=== PATIENT | female | born 1955 | race Caucasian/White ===

== ENCOUNTER 2020-06-16 12:56 | Outpatient (REF) | payer OTHER, SELFPAY ==
--- NOTE | 2020-06-16 13:00 | MM_ITS ---
EXAMINATION: MM SCREENING DIGITAL BREAST TOMOSYNTHESIS, BILATERAL CLINICAL INFORMATION: Screening. Asymptomatic. The lifetime risk of breast cancer based on the Tyrer-Cuzick Model is 7%. COMPARISON: Mammography: 12/26/2017, 09/04/2018, 08/15/2016 TECHNIQUE: Digital breast tomosynthesis is performed in both the craniocaudal and mediolateral oblique views along with computer-aided detection (CAD). Synthesized 2D images are generated from the tomosynthesis. FINDINGS: There are scattered areas of fibroglandular density (ACR BI-RADS breast composition Category b). There are no significant masses, abnormal calcifications, or other abnormalities. No developing density. The axilla are unremarkable. MM/MM tomosynthesis screening BI IMPRESSION: No mammographic evidence of malignancy. ASSESSMENT: BI-RADS 1: Negative RECOMMENDATION: Routine annual mammography screening. This patient's information was entered into a reminder system with a target due date for their next mammogram.
== END 2020-06-16 12:57 | disposition home or self-care (01) ==
LOC: HO.MAMMO 12:56
PROVIDERS: PCP Internal Medicine; Visit Provider Physician Assistant
DX: Z12.31 Encounter for screening mammogram for malignant neoplasm of breast (principal); Z91.89 Other specified personal risk factors, not elsewhere classified
CPT/HCPCS: 77063; 77067

== ENCOUNTER 2021-05-22 06:32 | Outpatient (REF) | payer OTHER, SELFPAY ==
[2021-05-22 06:38] LABS: MANUAL DIFF FLAG NO
[2021-05-22 07:29] LABS: Basophils Absolute Auto 0.1 X10*3/uL (0.0-0.2); Basophils Percent Auto 0.9 % (0-2); Eosinophils Absolute Auto 0.2 X10*3/uL (0.0-0.4); Hematocrit 40.6 % (37.0-47.0); Hemoglobin 13.1 g/dl (12.0-16.0); Imm Gran Abs Auto 0.02 X10*3/uL (0.00-0.03); Imm Gran Pct Auto 0.3 % (0.0-0.4); Lymphocytes Absolute Auto 2.1 X10*3/uL (1.2-4.9); Lymphocytes Percent Auto 27.3 % (20-40); Mean Corpuscular HGB Conc 32.3 g/dl (31.0-35.0); Mean Corpuscular Hemoglobin 29.8 pg (27.0-33.0); Mean Corpuscular Volume 92.5 fL (80.0-98.0); Mean Platelet Volume 10.1 fL (9.4-12.3); Monocytes Absolute Auto 0.6 X10*3/uL (0.1-1.2); Monocytes Percent Auto 7.2 % (2-11); Neutrophils Absolute Auto 4.68 x10*3/uL (2.0-8.3); Neutrophils Percent Auto 61.3 % (45-73); Platelet Count 266 X10*3/uL (160-400); Red Blood Count 4.39 X10*6/uL (4.20-5.50); Red Cell Distribution Width 12.9 % (11.0-16.0); White Blood Count 7.6 X10*3/uL (4.8-10.8)
[2021-05-22 08:02] LABS: Alanine Aminotransferase 33 U/L (0-31); Albumin Level 4.3 g/dL (3.5-5.0); Alkaline Phosphatase 63 U/L (39-117); Anion Gap 11 (12-20); Aspartate Amino Transferase 22 U/L (5-31); Bilirubin Total 0.5 mg/dL (0.0-1.0); Blood Urea Nitrogen 17 mg/dL (9-16); Calcium 9.3 mg/dL (8.4-10.2); Carbon Dioxide 30 mmol/L (22-29); Chloride 105 mmol/L (96-108); Cholesterol 189 mg/dL; Estimated Glomerular Filt Rate > 60; Glucose Random 105 mg/dL (60-115); HDL Cholesterol 59 mg/dL; LDL Cholesterol Calculated 115 mg/dl; Potassium 4.7 mmol/L (3.3-5.1); Sodium 141 mmol/L (135-145); Total Protein 6.9 g/dL (6.5-8.0); Triglycerides 78 mg/dL
[2021-05-22 08:13] LABS: TSH reflex Free T4 4.28 uIU/mL (0.32-4.0)
[2021-05-22 08:59] LABS: Free T4 (Free Thyroxine) 0.91 ng/dL (0.71-1.85)
== END 2021-05-22 06:33 | disposition home or self-care (01) ==
LOC: HO.LAB 06:32
PROVIDERS: PCP Physician Assistant; Visit Provider Physician Assistant
DX: Z00.00 Encounter for general adult medical examination without abnormal findings (principal)
CPT/HCPCS: 36415; 80053; 80061; 84439; 84443; 85025

== ENCOUNTER 2021-06-07 14:46 | Outpatient (REF) | payer OTHER, SELFPAY ==
--- NOTE | ~2021-06-07 | US_ITS ---
EXAMINATION: US THYROID CLINICAL INFORMATION: Nontoxic multinodular goiter. COMPARISON: Ultrasound soft tissue head/neck thyroid dated 04/03/2020 and 09/22/2019. TECHNIQUE: Linear transducer grayscale and color Doppler examination with attention to the region of the thyroid. FINDINGS: SIZE: Measurements of the thyroid lobes and nodules are given in sagittal, anteroposterior and transverse dimensions respectively. Right Thyroid Lobe: 5.79 x 1.9 x 2.13 cm, volume 12.3 mL. Previously 5.8 x 2.1 x 2.3 cm, volume 14.7 mL. Parenchyma: The gland echotexture is heterogeneous. Thyroid vascularity is slightly increased. Left Thyroid Lobe: 5.56 x 1.94 x 2.16 cm, volume 12.2 mL. Previously 5.3 x 1.9 x 2.3 cm, volume 12.1 mL. Parenchyma: The gland echotexture is heterogeneous. Thyroid vascularity is slightly increased. Isthmus: 0.43 cm in maximum AP dimension. Previously 0.50 cm. Estimated total number of nodules greater than or equal to 1 cm: 3. 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 Location: Right inferior. Size: 1.5 x 0.9 x 1.4 cm, volume 0.94 mL. Previously: 0.92 x 0.84 x 0.89 cm, volume 0.36 mL. Nodule characteristics: Composition: Mixed cystic and solid (1). Echogenicity: Isoechoic (1). Shape: Not taller than wide (0). Margins: Smooth (0). Echogenic Foci: None (0). ACR TI-RADS total points: 2 ACR TI-RADS category: 2 Significant change in size (>/= 20% in 2 dimensions and minimal increase of 2 mm or 50% or greater increase in volume): Change in features: Change in ACR TI-RADS risk category: 2. Location: Right mid. Size: 1.0 x 0.95 x 1.2 cm, volume 0.6 mL. Previously: 1.1 x 1.1 x 1.2 cm, volume 0.76 mL. Nodule characteristics: Composition: Cannot be determined (2). Echogenicity: Cannot be determined (1). Shape: Not taller than wide (0). Margins: Smooth (0). Echogenic Foci: Peripheral calcifications (2). ACR TI-RADS total points: 5 ACR TI-RADS category: 4 Significant change in size (>/= 20% in 2 dimensions and minimal increase of 2 mm or 50% or greater increase in volume): Change in features: Change in ACR TI-RADS risk category: 3. Location: Left inferior. Size: 1.5 x 0.9 x 0.65 cm, volume 0.46 mL. Previously: 1.6 x 0.9 x 0.83 cm, volume 0.63 mL. Nodule characteristics: Composition: Solid (2). Echogenicity: Hyperechoic (1). Shape: Not taller than wide (0). Margins: Smooth (0). Echogenic Foci: None (0). ACR TI-RADS total points: 3 ACR TI-RADS category: 3 Significant change in size (>/= 20% in 2 dimensions and minimal increase of 2 mm or 50% or greater increase in volume): Change in features: Change in ACR TI-RADS risk category: 4. Location: Left superior. Size: 0.8 x 0.61 x 0.72 cm, volume 0.18 mL. Previously: 0.84 x 0.51 x 0.74 cm, volume 0.17 mL. Nodule characteristics: Composition: Solid (2). Echogenicity: Hyperechoic (1). Shape: Not taller than wide (0). Margins: Smooth (0). Echogenic Foci: None (0). ACR TI-RADS total points: 3 ACR TI-RADS category: 3 Significant change in size (>/= 20% in 2 dimensions and minimal increase of 2 mm or 50% or greater increase in volume): Change in features: Change in ACR TI-RADS risk category: NODES: No lymphadenopathy is seen in the tissue surrounding the thyroid gland. US/US thyroid IMPRESSION: Enlarged heterogeneous slightly hypervascular thyroid gland. There is interval increase in size in the mixed solid and cystic nodule in the inferior right lobe. Otherwise nodules do not appear appreciably changed.. ACR TI-RADS RECOMMENDATION REFERENCE: Ultrasound-guided fine-needle aspiration, followup ultrasound, no further follow up. * TR1 (0 point) and TR 2 (2 points): No FNA or follow up * TR3 (3 points): FNA if more than or equal to 2.5 cm in maximum dimension, followup ultrasound in 1, 3 and 5 years if 1.5 to 2.4 cm in maximum dimension. * TR4 (4-6 points): FNA if more than or equal to 1.5 cm in maximum dimension, followup ultrasound in 1, 2, 3 and 5 years if 1 to 1.4 cm in maximum dimension. * TR5 (more than or equal to 7 points): FNA if more than or equal to 1 cm in maximum dimension, followup ultrasound every year for 5 years if 0.5 to 0.9 cm in maximum dimension. * TR3, TR4 or TR5 nodules that are below the size threshold for follow up receive no follow up.
== END 2021-06-07 14:47 | disposition home or self-care (01) ==
LOC: HO.US 14:46
PROVIDERS: PCP Physician Assistant; Visit Provider Internal Medicine
DX: E04.2 Nontoxic multinodular goiter (principal)
CPT/HCPCS: 76536

== ENCOUNTER 2021-06-18 07:49 | Outpatient (REF) | payer OTHER, SELFPAY ==
--- NOTE | ~2021-06-18 | MM_ITS ---
EXAMINATION: MM SCREENING DIGITAL BREAST TOMOSYNTHESIS, BILATERAL CLINICAL INFORMATION: Screening. Asymptomatic. The lifetime risk of breast cancer based on the Tyrer-Cuzick Model is 6%. COMPARISON: Mammography: 06/16/2020, 12/26/2017, 12/16/2017, 08/15/2016, 07/17/2015 TECHNIQUE: Digital breast tomosynthesis is performed in both the craniocaudal and mediolateral oblique views along with computer-aided detection (CAD). Synthesized 2D images are generated from the tomosynthesis. FINDINGS: There are scattered areas of fibroglandular density (ACR BI-RADS breast composition Category b). There are no significant masses, abnormal calcifications, or other abnormalities. There are shifting fibroglandular densities from year to year related to positioning. No developing density or interval mass or architectural abnormality. There are some scattered benign round and ductal secretory calcifications. No significant changes. MM/MM tomosynthesis screening BI IMPRESSION: No mammographic evidence of malignancy. ASSESSMENT: BI-RADS 2: Benign RECOMMENDATION: Routine annual mammography screening. This patient's information was entered into a reminder system with a target due date for their next mammogram.
== END 2021-06-18 07:50 | disposition home or self-care (01) ==
LOC: HO.MAMMO 07:49
PROVIDERS: Visit Provider Physician Assistant
DX: Z12.31 Encounter for screening mammogram for malignant neoplasm of breast (principal)
CPT/HCPCS: 77063; 77067

== ENCOUNTER 2021-09-07 07:41 | Outpatient (REF) | payer OTHER, SELFPAY ==
[2021-09-07 08:57] LABS: Free T4 (Free Thyroxine) 1.14 ng/dL (0.71-1.85); Thyroid Stimulating Hormone 1.85 uIU/mL (0.32-4.0)
== END 2021-09-07 07:42 | disposition home or self-care (01) ==
LOC: HO.LAB 07:41
PROVIDERS: PCP Physician Assistant; Visit Provider Internal Medicine
DX: E04.2 Nontoxic multinodular goiter (principal)
CPT/HCPCS: 36415; 84439; 84443

== ENCOUNTER 2022-03-08 08:42 | Outpatient (REF) | payer OTHER, SELFPAY ==
--- NOTE | ~2022-03-08 | US_ITS ---
EXAMINATION: US THYROID CLINICAL INFORMATION: Nontoxic multinodular goiter. COMPARISON: Ultrasound soft tissue head/neck thyroid dated 06/07/2021 and 04/03/2020. TECHNIQUE: Linear transducer grayscale and color Doppler examination with attention to the region of the thyroid. FINDINGS: SIZE: Measurements of the thyroid lobes and nodules are given in sagittal, anteroposterior and transverse dimensions respectively. Right Thyroid Lobe: 5.3 x 1.8 x 2.9 cm, volume 14.5 mL. Previously 5.8 x 1.9 x 2.1 cm, volume 12.3 mL. Parenchyma: The gland echotexture is homogeneous. Thyroid vascularity is increased. Left Thyroid Lobe: 4.8 x 1.8 x 2.4 cm, volume 10.8 mL. Previously 5.6 x 1.9 x 2.2 cm, volume 12.2 mL. Parenchyma: The gland echotexture is heterogeneous. Thyroid vascularity is increased. Isthmus: 0.3 cm in maximum AP dimension. Previously 0.5 cm. Estimated total number of nodules greater than or equal to 1 cm: 2. 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 Location: Right inferior. Size: 0.9 x 0.7 x 1.1 cm, volume 0.4 mL. Previously: 1.5 x 0.9 x 1.4 cm, volume 0.9 mL. Nodule characteristics: Composition: Mixed cystic and solid (1). Echogenicity: Isoechoic (1). Shape: Not taller than wide (0). Margins: Smooth (0). Echogenic Foci: None (0). ACR TI-RADS total points: 2 Previous: 2 ACR TI-RADS category: 2 Previous: 2 Measurement difference may be due to interobserver variation of nodule borders. 2. Location: Right mid. Size: 1.0 x 1.0 x 1.0 cm, volume 0.5 mL. Previously: 1.0 x 1.0 x 1.2 cm, volume 0.6 mL. Nodule characteristics: Composition: Solid (2). Echogenicity: Hyperechoic (1). Shape: Not taller than wide (0). Margins: Smooth (0). Echogenic Foci: Peripheral calcifications (2). ACR TI-RADS total points: 5 Previous: 5 ACR TI-RADS category: 4 Previous: 4 Significant change in size (>/= 20% in 2 dimensions and minimal increase of 2 mm or 50% or greater increase in volume): Change in features: Change in ACR TI-RADS risk category: 3. Location: Left inferior. Size: 0.7 x 0.6 x 0.6 cm, volume 0.1 mL. Previously: 1 x 0.6 x 0.6 cm Nodule characteristics: Composition: Solid (2). Echogenicity: Hyperechoic (1). Shape: Not taller than wide (0). Margins: Smooth (0). Echogenic Foci: None (0). ACR TI-RADS total points: 3 ACR TI-RADS category: 3 4. Location: Left mid/inferior. Size: 0.7 x 0.5 x 0.8 cm, volume 0.1 mL. Previously: 0.8 x 0.6 x 0.7 Nodule characteristics: Composition: Solid (2). Echogenicity: Hyperechoic (1). Shape: Not taller than wide (0). Margins: Smooth (0). Echogenic Foci: None (0). ACR TI-RADS total points: 3 ACR TI-RADS category: 3 NODES: No lymphadenopathy is seen in the tissue surrounding the thyroid gland. US/US thyroid IMPRESSION: Enlarged hypervascular thyroid gland. No appreciable change in bilateral thyroid nodules. ACR TI-RADS RECOMMENDATION REFERENCE: Ultrasound-guided fine-needle aspiration, followup ultrasound, no further follow up. * TR1 (0 point) and TR 2 (2 points): No FNA or follow up * TR3 (3 points): FNA if more than or equal to 2.5 cm in maximum dimension, followup ultrasound in 1, 3 and 5 years if 1.5 to 2.4 cm in maximum dimension. * TR4 (4-6 points): FNA if more than or equal to 1.5 cm in maximum dimension, followup ultrasound in 1, 2, 3 and 5 years if 1 to 1.4 cm in maximum dimension. * TR5 (more than or equal to 7 points): FNA if more than or equal to 1 cm in maximum dimension, followup ultrasound every year for 5 years if 0.5 to 0.9 cm in maximum dimension. * TR3, TR4 or TR5 nodules that are below the size threshold for follow up receive no follow up.
== END 2022-03-08 08:43 | disposition home or self-care (01) ==
LOC: HO.US 08:42
PROVIDERS: Visit Provider Internal Medicine Endocrinology, Diabetes & Metabolism
DX: E04.2 Nontoxic multinodular goiter (principal)
CPT/HCPCS: 76536

== ENCOUNTER 2022-03-13 08:07 | Outpatient (REF) | payer OTHER, SELFPAY | END 2022-03-13 08:08 | disposition home or self-care (01) | LOC: HO.LAB 08:07 | PROVIDERS: PCP Physician Assistant; Visit Provider Internal Medicine Endocrinology, Diabetes & Metabolism | DX: E04.2 Nontoxic multinodular goiter (principal) | CPT/HCPCS: 36415; 84439; 84443 ==

== ENCOUNTER 2022-05-13 09:42 | Outpatient (REF) | payer OTHER, SELFPAY ==
[2022-05-13 11:29] LABS: MANUAL DIFF FLAG NO
[2022-05-13 11:33] LABS: Basophils Absolute Auto 0.1 X10*3/uL (0.0-0.2); Eosinophils Absolute Auto 0.1 X10*3/uL (0.0-0.4); Eosinophils Percent Auto 1.7 % (0-4); Hematocrit 42.4 % (37.0-47.0); Hemoglobin 13.3 g/dl (12.0-16.0); Imm Gran Abs Auto 0.06 X10*3/uL (0.00-0.03); Imm Gran Pct Auto 0.8 % (0.0-0.4); Lymphocytes Percent Auto 25.2 % (20-40); Mean Corpuscular HGB Conc 31.4 g/dl (31.0-35.0); Mean Corpuscular Hemoglobin 29.1 pg (27.0-33.0); Mean Corpuscular Volume 92.8 fL (80.0-98.0); Mean Platelet Volume 10.5 fL (9.4-12.3); Monocytes Absolute Auto 0.7 X10*3/uL (0.1-1.2); Monocytes Percent Auto 8.3 % (2-11); Platelet Count 297 X10*3/uL (160-400); Red Blood Count 4.57 X10*6/uL (4.20-5.50); Red Cell Distribution Width 13.5 % (11.0-16.0); White Blood Count 7.9 X10*3/uL (4.8-10.8)
[2022-05-13 12:18] LABS: Alanine Aminotransferase 24 U/L (0-31); Albumin Level 4.4 g/dL (3.5-5.0); Alkaline Phosphatase 63 U/L (39-117); Anion Gap 16 (12-20); Aspartate Amino Transferase 23 U/L (5-31); Bilirubin Total 0.4 mg/dL (0.0-1.0); Blood Urea Nitrogen 14 mg/dL (9-16); Calcium 9.6 mg/dL (8.4-10.2); Carbon Dioxide 29 mmol/L (22-29); Chloride 101 mmol/L (96-108); Cholesterol 207 mg/dL; Estimated Glomerular Filt Rate > 60; Glucose Random 103 mg/dL (60-115); HDL Cholesterol 70 mg/dL; LDL Cholesterol Calculated 124 mg/dl; Potassium 4.7 mmol/L (3.3-5.1); Sodium 141 mmol/L (135-145); Triglycerides 67 mg/dL
== END 2022-05-13 09:43 | disposition home or self-care (01) ==
LOC: HO.MANLDS 09:42
PROVIDERS: Visit Provider Physician Assistant
DX: Z00.00 Encounter for general adult medical examination without abnormal findings (principal)
CPT/HCPCS: 36415; 80053; 80061; 85025

== ENCOUNTER 2022-07-01 07:46 | Outpatient (REF) | payer OTHER, SELFPAY ==
--- NOTE | ~2022-07-01 | MM_ITS ---
EXAMINATION: MM SCREENING DIGITAL BREAST TOMOSYNTHESIS, BILATERAL CLINICAL INFORMATION: Screening. Asymptomatic. The lifetime risk of breast cancer based on the Tyrer-Cuzick Model is 6%. COMPARISON: Mammography: 06/18/2021, 06/16/2020, 12/26/2017, 12/16/2017 TECHNIQUE: Digital breast tomosynthesis is performed in both the craniocaudal and mediolateral oblique views along with computer-aided detection (CAD). Synthesized 2D images are generated from the tomosynthesis. FINDINGS: There are scattered areas of fibroglandular density (ACR BI-RADS breast composition Category b). There are no significant masses, abnormal calcifications, or other abnormalities. Parenchymal pattern is similar to prior studies. There is no developing density or architectural abnormality. The axilla and skin contours are unremarkable. No significant changes. MM/MM tomosynthesis screening BI IMPRESSION: No mammographic evidence of malignancy. ASSESSMENT: BI-RADS 1: Negative RECOMMENDATION: Routine annual mammography screening. This patient's information was entered into a reminder system with a target due date for their next mammogram.
== END 2022-07-01 07:47 | disposition home or self-care (01) ==
LOC: HO.MAMMO 07:46
PROVIDERS: PCP Internal Medicine; Visit Provider Physician Assistant
DX: Z12.31 Encounter for screening mammogram for malignant neoplasm of breast (principal)
CPT/HCPCS: 77063; 77067

== ENCOUNTER 2023-05-27 08:07 | Outpatient (REF) | payer MEDICARE, SELFPAY ==
[2023-05-27 08:16] LABS: MANUAL DIFF FLAG NO
[2023-05-27 08:26] LABS: Basophils Absolute Auto 0.1 X10*3/uL (0.0-0.2); Eosinophils Absolute Auto 0.2 X10*3/uL (0.0-0.4); Eosinophils Percent Auto 2.8 % (0-4); Hematocrit 42.9 % (37.0-47.0); Hemoglobin 13.5 g/dl (12.0-16.0); Imm Gran Abs Auto 0.04 X10*3/uL (0.00-0.03); Imm Gran Pct Auto 0.6 % (0.0-0.4); Lymphocytes Absolute Auto 2.2 X10*3/uL (1.2-4.9); Lymphocytes Percent Auto 30.3 % (20-40); Mean Corpuscular HGB Conc 31.5 g/dl (31.0-35.0); Mean Corpuscular Hemoglobin 29.2 pg (27.0-33.0); Mean Corpuscular Volume 92.7 fL (80.0-98.0); Mean Platelet Volume 9.6 fL (9.4-12.3); Monocytes Absolute Auto 0.5 X10*3/uL (0.1-1.2); Monocytes Percent Auto 6.9 % (2-11); Neutrophils Absolute Auto 4.2 x10*3/uL (2.0-8.3); Neutrophils Percent Auto 58.4 % (45-73); Platelet Count 317 X10*3/uL (160-400); Red Blood Count 4.63 X10*6/uL (4.20-5.50); Red Cell Distribution Width 12.9 % (11.0-16.0); White Blood Count 7.3 X10*3/uL (4.8-10.8)
[2023-05-27 08:58] LABS: Alanine Aminotransferase 23 U/L (0-31); Albumin Level 4.2 g/dL (3.5-5.0); Alkaline Phosphatase 65 U/L (39-117); Anion Gap 11 (12-20); Aspartate Amino Transferase 23 U/L (5-31); Bilirubin Total 0.4 mg/dL (0.0-1.0); Blood Urea Nitrogen 14 mg/dL (9-16); Calcium 9.7 mg/dL (8.4-10.2); Carbon Dioxide 31 mmol/L (22-29); Chloride 105 mmol/L (96-108); Cholesterol 181 mg/dL (<200); Estimated Glomerular Filt Rate > 60; Glucose Random 101 mg/dL (60-115); HDL Cholesterol 61 mg/dL (>40); LDL Cholesterol Calculated 105 mg/dL (<100); Potassium 4.6 mmol/L (3.3-5.1); Sodium 142 mmol/L (135-145); Total Protein 7.5 g/dL (6.5-8.0); Triglycerides 77 mg/dL (<150)
== END 2023-05-27 08:08 | disposition home or self-care (01) ==
LOC: HO.LAB 08:07
PROVIDERS: PCP Internal Medicine; Visit Provider Physician Assistant
DX: Z00.00 Encounter for general adult medical examination without abnormal findings (principal); Z20.2 Contact with and (suspected) exposure to infections with a predominantly sexual mode of transmission
CPT/HCPCS: 36415; 80053; 80061; 85025

== ENCOUNTER 2023-07-31 10:11 | Outpatient (REF) | payer MEDICARE, SELFPAY | END 2023-07-31 10:12 | disposition home or self-care (01) | LOC: HO.MAMMO 10:11 | PROVIDERS: PCP Physician Assistant; Visit Provider Internal Medicine | DX: Z12.31 Encounter for screening mammogram for malignant neoplasm of breast (principal) | CPT/HCPCS: 77063; 77067 ==

== ENCOUNTER → 2023-07-31 10:30 | Outpatient (BNV) | payer MEDICARE, SELFPAY | PROVIDERS: PCP Physician Assistant; Visit Provider Radiology Diagnostic Radiology | DX: Z12.31 Encounter for screening mammogram for malignant neoplasm of breast (principal) | CPT/HCPCS: 77063; 77067 ==

== ENCOUNTER 2024-05-26 07:30 | Outpatient (REF) | payer MEDICARE, SELFPAY ==
[2024-05-26 07:51] LABS: MANUAL DIFF FLAG NO
[2024-05-26 08:05] LABS: Basophils Absolute Auto 0.1 X10*3/uL (0.0-0.2); Eosinophils Absolute Auto 0.2 X10*3/uL (0.0-0.4); Eosinophils Percent Auto 2.8 % (0-4); Hemoglobin 12.9 g/dl (12.0-16.0); Imm Gran Abs Auto 0.01 X10*3/uL (0.00-0.03); Imm Gran Pct Auto 0.1 % (0.0-0.4); Lymphocytes Absolute Auto 2.1 X10*3/uL (1.2-4.9); Lymphocytes Percent Auto 30.1 % (20-40); Mean Corpuscular HGB Conc 32.3 g/dl (31.0-35.0); Mean Corpuscular Hemoglobin 29.7 pg (27.0-33.0); Mean Corpuscular Volume 92.2 fL (80.0-98.0); Mean Platelet Volume 9.9 fL (9.4-12.3); Monocytes Absolute Auto 0.5 X10*3/uL (0.1-1.2); Monocytes Percent Auto 7.6 % (2-11); Neutrophils Percent Auto 58.4 % (45-73); Platelet Count 238 X10*3/uL (160-400); Red Blood Count 4.34 X10*6/uL (4.20-5.50); Red Cell Distribution Width 12.6 % (11.0-16.0); White Blood Count 6.8 X10*3/uL (4.8-10.8)
[2024-05-26 08:11] LABS: Estimated Average Glucose 123 mg/dL; Hemoglobin A1c % 5.9 % (<6.0); Total Hemoglobin (HGBA1C) 3427.3479 umol/L
[2024-05-26 08:34] LABS: Alanine Aminotransferase 28 U/L (0-31); Albumin Level 4.1 g/dL (3.5-5.0); Alkaline Phosphatase 63 U/L (39-117); Anion Gap 11 (12-20); Aspartate Amino Transferase 26 U/L (5-31); Bilirubin Total 0.4 mg/dL (0.0-1.0); Blood Urea Nitrogen 13 mg/dL (9-16); Calcium 9.6 mg/dL (8.4-10.2); Carbon Dioxide 29 mmol/L (22-29); Chloride 106 mmol/L (96-108); Cholesterol 169 mg/dL (<200); Estimated Glomerular Filt Rate > 60; Glucose Random 99 mg/dL (60-115); HDL Cholesterol 59 mg/dL (>40); LDL Cholesterol Calculated 92 mg/dL (<100); Potassium 4.4 mmol/L (3.3-5.1); Sodium 142 mmol/L (135-145); Total Protein 6.8 g/dL (6.5-8.0); Triglycerides 90 mg/dL (<150)
[2024-05-26 08:44] LABS: Free T4 (Free Thyroxine) 1.09 ng/dL (0.71-1.85); Vitamin D 25-OH Total 36.2 ng/mL (>30)
== END 2024-05-26 07:31 | disposition home or self-care (01) ==
LOC: HO.LAB 07:30
PROVIDERS: PCP Physician Assistant; Visit Provider Physician Assistant
DX: Z00.00 Encounter for general adult medical examination without abnormal findings (principal); E00.0 Congenital iodine-deficiency syndrome, neurological type; Z13.1 Encounter for screening for diabetes mellitus
CPT/HCPCS: 36415; 80053; 80061; 82306; 83036; 84439; 84443; 85025

== ENCOUNTER 2024-08-03 10:00 | Outpatient (REF) | payer MEDICARE, SELFPAY | END 2024-08-03 10:01 | disposition home or self-care (01) | LOC: HO.MAMMO 10:00 | PROVIDERS: PCP Physician Assistant; Visit Provider Physician Assistant | DX: Z12.31 Encounter for screening mammogram for malignant neoplasm of breast (principal) | CPT/HCPCS: 77063; 77067 ==

== ENCOUNTER → 2024-08-03 10:15 | Outpatient (BNV) | payer MEDICARE, SELFPAY | PROVIDERS: PCP Physician Assistant; Visit Provider Internal Medicine | DX: Z12.31 Encounter for screening mammogram for malignant neoplasm of breast (principal) | CPT/HCPCS: 77063; 77067 ==

== ENCOUNTER 2025-04-14 08:33 | Outpatient (AMB) | payer MEDICARE, SELFPAY ==
--- NOTE | 2025-04-14 08:41 | AM.OFFWIN_ITS ---
Intake Vital Signs 04/14/25 08:47 Height 5 ft 9 in Weight 212 lb BMI 31.3 BP 124/66 Blood Pressure Location Rt brachial Position Sitting Pulse 68 Pulse Source Pulse Oximeter Temp 98.5 F Temp Source Oral Pulse Oximetry (%) 98 Oxygen Delivery Method Room Air Intake Visit Reasons: EP LT knee pain Intake Note: pt presents LT knee pain since yesterday Patient Tobacco Use Status: Never used Tobacco Allergies No Known Allergies Allergy (Verified 04/14/25 08:47) Medication List - Last Reconciled 04/14/25 by Di Grant NP calcium carbonate-vitamin D3 600 mg-5 mcg (200 unit) 1 tab PO DAILY levothyroxine 88 mcg PO DAILY 30 days multivitamin 1 tab PO DAILY omeprazole 20 mg PO DAILY simvastatin 40 mg PO BEDTIME Do you need a note to return to daycare/school/sports/work: No HPI HPI Comments History of Present Illness Details 69 y/o Female patient who presents to [facility] walk in clinic with c/o left Knee Pain since Yesterday. Reports that she was walking her Dog Yesterday when the Dog pulled on the Leash - she felt sharp pain on Knee. Denies any previous Injury or trauma or Surgery to the knee. She has been Icing with minimal relief. She is currently wearing a knee Brace which has been helping keep the Knee strait. Reports pain worse with Bending Knee and going up stairs. [facility] Medical History (Updated 04/14/25 @ 08:56 by Di Grant NP) Left anterior knee pain Multinodular thyroid Surgical History History of surgery Family History Mother No problems noted. Father No problems noted. Social History (Updated 03/19/22 @ 10:05 by ERIKA Anaya) Alcohol intake: current Alcohol intake frequency: holidays/special occasions only Patient Tobacco Use Status: Never used Tobacco Review of Systems Const All systems reviewed & are unremarkable except as noted in HPI and below Physical Exam Vital Signs: Last Vital Signs Temp 98.5 F 04/14/25 08:47 Pulse 68 04/14/25 08:47 BP 124/66 04/14/25 08:47 Pulse Ox 98 09/25/25 08:47 Oxygen Delivery Method Room Air 04/14/25 08:47 BMI result Body Mass Index 31.3 Const General: no acute distress Nutritional Appearance: obese Orientation/consciousness: patient oriented x3 Neuro General: patient oriented x3, gait normal (Walks with a Slight Limp due to pain.) and moves all extremities Extrem Left lower extremity: knee Details: normal to inspection, tenderness and ab normal ROM Details: pain with active ROM and pain with passive ROM; no swelling, no ecchymosis, no crepitus, no deformity and no unusual warmth Psych Speech and movement: Normal speech and movement present Assessment & Plan Assessment & Plan (1) Left anterior knee pain: Code(s): M25.562 - Pain in left knee Plan: Ordered NSAIDs and Acetaminophen for pain relief. Continue wearing Knee Brace for Support Rest joint and apply Ice/Heat Advised to f/u with Her PCP Medications: New acetaminophen 1,000 mg (2 x 500 mg) PO Q6H PRN 20 caps 0RF pain M25.562 - Pain in left knee ibuprofen 800 mg PO Q8H 20 tabs 0RF M25.562 - Pain in left knee diclofenac sodium 1% (Voltaren Arthritis Pain) Apply to the affected Knee. 2 grams topical QID 100 grams 0RF M25.562 - Pain in left knee Coding Level of Care Code New Pt Level 4 (48018) Diagnoses Left anterior knee pain M25.562 Time Spent (min) 20
[2025-04-14 08:47] VITALS: BP 124/66; PULSE 68; TEMP 36.9; O2SAT 98; BMI 31.3
--- OUTSIDE RECORDS SUMMARY | 2025-04-14 09:06 | XMS_ITS | Patient Health Record ---
Author Organization [facility] Address [address] [place] [id number] Care Team Providers Care Business Information Consultant Name Role Phone Rashaun Kennedy Primary Care Provider Wilian Sexton [phone] Reason For Referral No Information Medications Medication SIG (Take, Route, Fr equency, Duration) Notes Start Date End Date Status Simvastatin 40 MG 1 tablet in the even ing Orally Once a day Active Multivitamin Adult A ctive Calcium Active Baby Aspirin Active Social History Tobacco Use: Social History Observation Description Date Details (start date - stop date) Never Smoker NA - NA Tobacco Use/Smoking Question Answer Notes Patient is a nonsmoker Alcohol Screen Question Answer Notes Did you have a drink contain ing alcohol in the past year? Yes How often did you have a dri nk containing alcohol in the past year? 2 to 4 times a month (2 points) How many drinks did you have on a typical day when you were drinking in the past year? 3 or 4 drinks (1 point) How often did you have 6 or more drinks on one occasion in the past year? Never (0 point) Points 3 Interpretation Positive Section Notes: Nonsmoker; no sig alcohol Problems Problem Type SNOMED Code ICD Code Onset Dates Problem Status W/U Status Risk Notes Problem [id number] Encounter for screening for malignant neoplasm of colon (Z12.11) Active confirmed Problem [id number] Preprocedural examination (Z01.818) Active confirmed Plan Of Treatment Future Test Test Name Order Date COLONOSCOPY 12/25/2017 Insurance Providers Payer Name Payer Address Payer Phone Subscriber Number Group Number Insured Name Patient Relationship to Insured Coverage Start Date Coverage End Date [employer] [address] [place] [id number] KATI WHEELER Self - patient is the insured Medical (General) History Medical History History ICD Code Denies [place],DM,CVA,Lung disease,renal dise ase Thyroid nodules--sees Dr. Resendiz Neg. screening colonoscopy i n 03/2008 except for some mild sigmoid diverticulosis and small internal hemorrhoids Hyperlipidemia Surgical History Surgery Date(Month/Year) Cholecystectomy
== END 2025-04-14 09:07 | disposition home or self-care (01) ==
PROVIDERS: PCP Physician Assistant; Visit Provider Nurse Practitioner Family
DX: M25.562 Pain in left knee (principal)

== ENCOUNTER → 2025-04-14 08:33 | Outpatient (BNVA) | payer MEDICARE, SELFPAY | PROVIDERS: PCP Physician Assistant; Visit Provider Nurse Practitioner Family | DX: M25.562 Pain in left knee (principal) | CPT/HCPCS: 99202 ==

== ENCOUNTER 2025-06-10 07:37 | Outpatient (REF) | payer MEDICARE, SELFPAY ==
--- OUTSIDE RECORDS SUMMARY | 2025-06-10 07:40 | XMS_ITS | Data Portability ---
Author Organization [facility] Mitch Love Mnmary [facility] Surgeons [facility], [facility] Address [address] [place] [address] Care Team Providers Care Child Care Worker Name Role Phone DEBORAH LOPES Primary Care Provider [phone] Assessment Encounter Date Assessment Date Assessment LastModified by Organization Details LastModified Time 12/04/2023 12/04/2023 Making steady gains increasing ROM, and improved active mechanics supine and STD with FF. Good naty to light strengthening . Appears ready for D/C to HEP D/C to I HEP [email or web address] Not available 12/04/2023 09:56:06 Plan of Treatment Reminders Order Date Submit Date Provider Last Modified By Organization Details Last Modified Time Details Appointments NEW PROBLEM 2025 10:45A M Nader Ruiz PA-C Not available Not available Not available Lab None recorded . Referral None recorded . Procedures None recorded . Surgeries None recorded . Imaging XR, shoulder , 2 or more view - ROOM 203, 6month f/u, Left Rev TSA 08/26/23 JVG 2023 024 [email or web address] 7 [facility], [address], [place], [address], 04/08/2024 16:04:49 XR, shoulder , 2 or more view - right shoulder 4 view rm 212 2023 024 [facility], [address], [address], [place], [address], 01/13/2024 14:13:09 XR, shoulder , 2 or more view - Left shoulder rTSA sx 3 view, RM 214 2023 024 [facility], [address], [address], 12/11/2023 12:49:24 Medication Orders amoxicil joanne 500 mg capsule 2023 024 [id number], [address] [place], [address], 12/01/2023 11:05:17 Patient TargetsNo targets recorded. Patient Instructions Encounter Date Encounter Id Patient Instructions Last Modified By Organization Details Last Modified Time 01/06/2024 [id number] You have been provided with a cortisone injection in order to reduce the pain and inflammation that you are experiencing. The injection consists of two medications. Cortisone (an anti-inflammatory that will take 48-72 hours to take effect) and Lidocaine (a numbing agent that will last 2-3 hours). Please note that not everyone will have a lasting response following the injection. PATIENT INSTRUCTIONS Once the Lidocaine wears off, you may have an increase in your pain. I recommend icing the affected area for 20 minutes 3-4 times per day. It is recommended that you refrain from any high level activities using the joint or limb that was injected for approximately 24-48 hours. Normal day-to-day activities are generally not a problem. POSSIBLE SIDE EFFECTS Individuals with dark complexions may experience some skin discoloration locally at the site of the injection. There is the possibility of an increase in discomfort within 48 hours following the injection. This is called natanael mckenzie . To help minimize the chances of this, please see the post-injection instructions above. There is a less than 1% chance of an infection. If you notice any signs of infection (redness, warmth, drainage, fever greater than 100 degrees) please call our office or contact us through the portal [email or web address] Not available 01/06/2024 10:03:59 Reason for Referral None Reported. Results Created Date Observation Date Name Description Value Unit Range Abnormal Flag Note LastModifiedBy Organization Detail LastModifiedTime 01/06/20 24 01/06/2024 bean BRAND, 2 or more view http:/ [email or web address] ?Encry pted=s hAaTro YD8dLq bEUv6g %2BXZw aYqtaq 0bqfl% 2Fg9IQ a4ajBk vP9nXo QUaueC m3YtLR FvZlgJ JJ8mAn tai3 5i7181 AC0Kub HmMVaL eUC8mr 84%3D INTERFACE [facility] [address], [place], [address], 01/06/2024 09:38:21 01/06/20 24 01/06/2024 XR, shoul lucinda, 2 or more view http:/ [email or web address] ?Encry pted=s hAaTro YD8dLq bEUv6g %2BXZw aYqtaq 0bqfl% 2Fg9IQ a4ajBk vP9nXo QUaueC m3YtLR FvZl [place] [address] 1x7685 AC0Kub HmMVaL eUC8mr 84%3D INTERFACE [facility] [address], [place], [address], 01/06/2024 09:38:23 03/20/20 24 04/19/2023 imagi ng/di agnos tic resul t No observ ation record ed. [email or web address] Not Available 02/20 10:43:16 03/20/20 24 08/04/2023 imagi ng/di agnos tic resul t No observ ation record ed. [email or web address] Not Available 02/20 10:43:25 04/08/20 24 04/08/2024 XR, shoul lucinda, 2 or more view http:/ [email or web address] ?Encry pted=s hAaTro YD8dLq bEUv6g %2BXZw aYqtaq 0bqfl% 2Fg9IQ a4ajBk vP9nXo QUaueC m3YtLR FvZlgJ JJ8mAn tai3 4x4783 AC0Kqa nuAU6G uKiQtr MwF INTERFACE [facility] [address], [place], [address], 04/08/2024 15:52:26 04/08/20 24 04/08/2024 XR, shoul lucinda, 2 or more view http:/ [email or web address] ?Encry pted=s hAaTro YD8dLq bEUv6g %2BXZw aYqtaq 0bqfl% 2Fg9IQ a4ajBk vP9nXo QUaueC m3YtLR FvZlgJ JJ8mAn HZtai3 9j2267 AC0Kqa nuAU6G uKiQtr MwF INTERFACE [facility] [address], [place], [address], 04/08/2024 15:52:28 Result Notes Documentation Provider Name and Address Organization Details Recorded Time Xr, Shoulder, 2 Or More View : [email or web address]? Encrypted=qnTjOjxIP2lTehC Uv6g%7XIYysFfoiv5lxmg%2Fg 1KQv4swZqrP0jBzPPoliWa0Rm IKKjAvqKAP7sFjGAywz39m884 5VU3CbfTxCKkWqXR3mj07%3D Not Available [facility] 01/06/2024 09:3 8:22 Xr, Shoulder, 2 Or More View : [email or web address]? Encrypted=gaIkEvbOE7jDuzI Uv6g%2PDFcxZtokm7rohx%2Fg 9SVc8xnNceS2aUuSBwltCw6Ua QJMjIukUOJ8nBaQEmvp15a366 4ZA8GxxGvUFwHtIR8te87%3D Not Available [facility] 01/06/2024 09:3 8:23 Xr, Shoulder, 2 Or More View : [email or web address]? Encrypted=szKlLlvHV4qSrzR Uv6g%0HSFrtWfdec1rgcz%2Fg 5ZLi0iiMyjL0gOlZVxljKy9Yi NIAvRmqGWJ2gBnODcyp27t452 2QL8LuomtZK5LjJnOmvIzU Not Available [facility] 04/08/2024 15:52: 27 Xr, Shoulder, 2 Or More View : [email or web address]? Encrypted=ekLhQusIZ7iXyaQ Uv6g%6LPHirXqxfj7fddf%2Fg 2EIx7luAayJ9xKgTRweyUj9Fv BPBjHluMWY4tIvASjik29a411 9HL0IohqwLI5ThIyYrfGwV Not Available [facility] 04/08/2024 15:52: 29 Problems Name Problem SNOMED Code Status Onset Date Resolution Date Notes Provider Name and Address Organization Details Recorded Time Shoulder joint pain 721909000 Active 2021 Status : 'A'; Not Available [facility] 4 11:58:31 Pain of right shoulder joint 6314554472453 9100 Active 2024 Jenifer Shirley PA-C [address], [place], [address] , [facility] 5 10:01:32 Osteoarthr itis of right glenohumer al joint 3870710535698 101 Active 2024 Jenifer Shirley PA-C [address], [place], [address] , [facility] 5 10:01:32 Problem Notes None recorded. Procedures Surgical History Date Name Laterality Status Provider Name and Address Organization Details Recorded Time 11/20/19 25 Sports Shoulder completed Jenifer Shirley PA-C [address], [place], [address], [facility] 11/19/2024 10:01:42 01/06/20 24 Sports Shoulder completed Jenifer Shirley PA-C [address], [place], [address], [facility] 01/06/2024 10:01:55 12/04/19 76841 Therapeutic Exercise (1:1) completed Gonzalez Persaud, PT [address], [place], [address], [facility] 12/03/2023 20:51:53 12/04/19 52334: Manual therapy completed Gonzalez Persaud, PT [address], [place], [address], [facility] 12/03/2023 20:51:53 11/26/19 89840 Therapeutic Exercise (1:1) completed Gonzalez Persaud, PT [address], [place], [address], [facility] 11/26/2023 06:52:12 11/26/19 85803: Manual therapy completed Gonzalez Persaud PT [address], [place], [address], [facility] 11/26/2023 06:52:12 11/20/19 40115 Therapeutic Exercise (1:1) completed Gonzalez Persaud PT [address], [place], [address], [facility] 11/20/2023 06:52:49 11/20/19 91079: Manual therapy completed Gonzalez Persaud PT [address], [place], [address], [facility] 11/20/2023 06:52:49 11/18/19 71861 Therapeutic Exercise (1:1) completed Gonzalez Persaud PT [address], [place], [address], [facility] 11/18/2023 06:57:31 11/18/19 78162: Manual therapy completed Gonzalez Persaud, PT [address], [place], [address], [facility] 11/18/2023 06:57:31 11/12/19 47842 Therapeutic Exercise (1:1) completed Dhara Lora DATA MANAGEMENT ASSOCIATE [address], [place], [address], [facility] 11/11/2023 18:15:05 11/12/19 04937: Manual therapy completed Dhara Lora DATA MANAGEMENT ASSOCIATE [address], [place], [address], [facility] 11/11/2023 18:15:05 11/10/19 99277 Therapeutic Exercise (1:1) completed Dhara Lora DATA MANAGEMENT ASSOCIATE [address], [place], [address], [facility] 11/10/2023 06:49:24 11/10/19 55692: Manual therapy completed Dhara Lora PTA [address], [place], [address], [facility] 11/10/2023 06:49:24 11/06/19 08879 Therapeutic Exercise (1:1) completed Gonzalez Persaud, PT [address], [place], [address], [facility] 11/05/2023 19:57:01 11/06/19 05657: Manual therapy completed Gonzalez Persaud, PT [address], [place], [address], [facility] 11/05/2023 19:57:01 11/04/19 39738 Therapeutic Exercise (1:1) completed Gonzalez Persaud, PT [address], [place], [address], [facility] 11/03/2023 13:41:01 11/04/19 38883: Manual therapy completed Gonzalez Persaud, PT [address], [place], [address], [facility] 11/03/2023 13:41:01 10/29/19 76290 Therapeutic Exercise (1:1) completed Dhara Lora DATA MANAGEMENT ASSOCIATE [address], [place], [address], [facility] 10/28/2023 17:41:57 10/29/19 24 84108: Manual therapy completed Dhara Lora PTA [address], [place], [address], [facility] 10/28/2023 17:41:57 10/27/19 24 30737 Therapeutic Exercise (1:1) completed Dhara Lora PTA [address], [place], [address], [facility] 10/26/2023 19:29:07 10/27/19 24 18704: Manual therapy completed Dhara Lora PTA [address], [place], [address], [facility] 10/26/2023 19:29:07 10/23/19 24 13896 Therapeutic Exercise (1:1) completed Gonzalez Persaud, PT [address], [place], [address], [facility] 10/22/2023 19:06:02 10/23/19 24 94194: Manual therapy completed Gonzalez Persaud PT [address], [place], [address], [facility] 10/22/2023 19:06:03 10/21/19 24 01915 Therapeutic Exercise (1:1) completed Gonzalez Persaud PT [address], [place], [address], [facility] 10/21/2023 08:57:12 10/21/19 24 19970: Manual therapy completed Gonzalez Persaud PT [address], [place], [address], [facility] 10/20/2023 15:20:13 10/15/19 24 68944 Therapeutic Exercise (1:1) completed Dhara Lora PTA [address], [place], [address], [facility] 10/15/2023 08:05:15 10/15/19 24 92384: Manual therapy completed Dhara Lora, DATA MANAGEMENT ASSOCIATE [address], [place], [address], [facility] 10/15/2023 08:05:19 10/13/19 24 79520 Therapeutic Exercise (1:1) completed Dhara Lora, DATA MANAGEMENT ASSOCIATE [address], [place], [address], [facility] 10/13/2023 08:52:42 10/13/19 98386: Manual therapy completed Dhara Lora, DATA MANAGEMENT ASSOCIATE [address], [place], [address], [facility] 10/13/2023 08:52:45 10/08/19 07752 Therapeutic Exercise (1:1) completed Gonzalez Persaud, PT [address], [place], [address], [facility] 10/08/2023 07:03:37 10/08/19 81704: Low complexity PT Eval completed Gonzalez Persaud, PT [address], [place], [address], [facility] 10/08/2023 07:03:15 prosthetic arthroplasty of shoulder completed TRINH MENDOZA [facility] 11/20/2023 11:31:49 Imaging Results None recorded. Procedure Notes None recorded. Medical Equipment None Reported. Allergies No known drug allergies Medications Name Sig Start Date Stop Date Status Note LastModified by Organization Details LastModified Time amoxicillin 500 mg capsule 4 pills taken at the same time 1 hour prior to procedure /cleaning active Not Available Not Available No t Available meloxicam 15 mg tablet active Not Available Not Available Not Available simvastatin 40 mg tablet active Not Available Not Available Not Available levothyroxi ne 88 mcg tablet active Not Available Not Available Not Available omeprazole 20 mg capsule,del ayed release active Not Available Not Available Not Available oxycodone 5 mg tablet 11/19 completed Not Available Not Available Not Available oxycodone HCl-oxycodo ne-ASA as directed 1 TABLET Q 4 HOURS PRN PAIN DO NOT DRIVE WHILE TAKING THIS MEDICATIO N 11/19 completed Statu s: 'Curr ent'; Not Available Not Available Not Available Vitals Date Recorded Body height Body mass index (BMI) Body weight Provider Name and Address Organization Details Last Updated DateTime 11/19/2024 175.26 cm 31 kg/m2 49618.4 g Maria Inesdavid justin [facility] 11/19/2024 13:00:49 Date Recorded Body height Provider Name an d Address Organization Details Last Updated DateTime 12/01/2023 175.26 cm TRINH BARKERRO [facility] 12/01/2023 10:23:56 Date Recorded Body height Body mass index (BMI) Body weight Provider Name and Address Organization Details Last Updated DateTime 01/06/2024 175.26 cm 31 kg/m2 03918.4 g Sj Gates [facility] 01/06/2024 09:12:55 Date Recorded Body height Body mass index (BMI) Body weight Provider Name and Address Organization Details Last Updated DateTime 04/08/2024 175.26 cm 31 kg/m2 83722.4 g Jose Escobar [facility] 04/08/2024 15:43:11 Social History None recorded. Functional Status None recorded. Mental Status None recorded. Family History Nothing Reported. Medical History Condition Response Acid Reflux (GERD) Y Arthritis Y Thyroid Problems Y Gynecological HistoryNo gynecological history recorded. Obstetrics History GPAL:G 0 P 0 0 0 0 Past Encounters Encounter ID Performer Location Encounter Start Date Encounter Closed Date Diagnosis/Indication Diagnosis SNOMED-CT Code Diagnosis ICD10 Code Diagnosis IMO Codes Diagnosis Note [id number] Gonzalez Persaud, PT [facility] [address] [place] [address] 10/08/2023 07:51:18 10/08/2023 09:05:28 Aftercare 782119487 Z47.1 History of reverse prosthetic total arthroplasty of left shoulder 4118372835 2823104 Z96.576 [id number] ALMA DELIA Schultz 2nd floor [address] [place] [address] 10/08/2023 14:13:22 10/23/2023 15:26:42 History of reverse prosthetic total arthroplasty of left shoulder 3030983576 6233156 Z96.425 [id number] Dhara Lora, DATA MANAGEMENT ASSOCIATE [facility] [address] [place] [id number] 10/13/2023 08:16:50 10/13/2023 08:52:59 Aftercare 116998342 Z47.1 History of reverse prosthetic total arthroplasty of left shoulder 1612270270 5100902 Z96.489 [id number] Dhara Lora, DATA MANAGEMENT ASSOCIATE [facility] [address] [place] [id number] 10/15/2023 07:18:21 10/15/2023 08:11:43 Aftercare 003944209 Z47.1 History of reverse prosthetic total arthroplasty of left shoulder 2201808315 8171688 Z96.998 [id number] Gonzalez Persaud, PT [facility] [address] [place] [address] 10/21/2023 07:46:28 10/21/2023 08:56:14 Aftercare 982990433 Z47.1 History of reverse prosthetic total arthroplasty of left shoulder 0829146011 0352581 Z96.855 [id number] Gonzalez Persaud, PT [facility] [address] [place] [address] 10/23/2023 08:19:44 10/23/2023 09:36:15 Aftercare 074758322 Z47.1 History of reverse prosthetic total arthroplasty of left shoulder 9629660667 1786814 Z96.514 [id number] Dhara Guido, DATA MANAGEMENT ASSOCIATE [facility] [address] [place] [address] 10/27/2023 09:19:21 10/27/2023 10:27:43 Aftercare 578525639 Z47.1 History of reverse prosthetic total arthroplasty of left shoulder 0288760987 0456837 Z96.846 [id number] Dhara Lora DATA MANAGEMENT ASSOCIATE [facility] [address] [place] [id number] 10/29/2023 09:22:12 10/29/2023 10:21:52 Aftercare 395697806 Z47.1 History of reverse prosthetic total arthroplasty of left shoulder 3596323270 5941613 Z96.131 [id number] Gonzalez Persaud, PT [facility] [address] [place] [id number] 11/04/2023 08:52:05 11/04/2023 09:45:51 Aftercare 881833213 Z47.1 History of reverse prosthetic total arthroplasty of left shoulder 9571215168 2558362 Z96.541 [id number] Gonzalez Persaud, PT [facility] [address] [place] [id number] 11/06/2023 08:48:18 11/06/2023 10:20:29 Aftercare 393051183 Z47.1 History of reverse prosthetic total arthroplasty of left shoulder 9171276752 3100141 Z96.512 [id number] Dhara Lora, DATA MANAGEMENT ASSOCIATE [facility] [address] [place] [id number] 11/10/2023 08:20:07 11/10/2023 09:04:57 Aftercare 257670963 Z47.1 History of reverse prosthetic total arthroplasty of left shoulder 4260801400 8771944 Z96.295 [id number] Dhara Lora, DATA MANAGEMENT ASSOCIATE [facility] [address] [place] [id number] 11/12/2023 08:47:38 11/12/2023 09:34:30 Aftercare 772217374 Z47.1 History of reverse prosthetic total arthroplasty of left shoulder 9148698546 9868041 Z96.478 [id number] Gonzalez Persaud, PT [facility] [address] [place] [address] 11/18/2023 08:49:49 11/18/2023 09:44:00 Aftercare 273932412 Z47.1 History of reverse prosthetic total arthroplasty of left shoulder 0124773729 1721138 Z96.857 [id number] Gonzalez Persaud, PT [facility] [address] [place] [id number] 11/20/2023 08:48:11 11/20/2023 09:50:15 Aftercare 462641402 Z47.1 History of reverse prosthetic total arthroplasty of left shoulder 0389263302 3758954 Z96.582 [id number] MD Shakira Robin 2nd floor [address] [place] [id number] 12/01/2023 10:20:41 12/11/2023 12:49:24 History of reverse prosthetic total arthroplasty of left shoulder 2493836126 1046624 Z96.720 [id number] Gonzalez Persaud PT [facility] [address] [place] [id number] 11/26/2023 07:21:00 11/26/2023 08:14:06 Aftercare 027448118 Z47.1 History of reverse prosthetic total arthroplasty of left shoulder 4217980722 6715273 Z96.829 [id number] Gonzalez Persaud PT [facility] [address] [place] [id number] 12/04/2023 07:49:23 12/04/2023 09:27:26 History of reverse prosthetic total arthroplasty of left shoulder 2868887551 3457146 Z96.612 Aftercare 953495171 Z47. 1 [id number] ALMA DELIA Barrett 2[address] floor [address] [place] [id number] 01/06/2024 08:44:36 02/02/2024 15:46:32 Pain of right shoulder joint 9635480607 1329326 M25.511 Osteoarthr itis of right glenohumeral joint 1214324066 757639 M19.011 Reviewed patient's imaging and exam findings in detail with her. Reviewed that she does have progressiv e right glenohumer al joint osteoarthr itis. She does have some weakness of her rotator cuff testing as well. She is not interested in pursuing any type of right shoulder at this time. Discussed that she will likely require reverse total shoulder replacemen t on her right side as well. She is continue to recover from her left reverse total shoulder and is doing very well. Therefore recommende d continued home exercise program which she already has from her previous physical therapy accompanie d by intermitte nt cortisone injections which can be repeated as often as every 3 months. We will move forward with this today. She is in agreement. She may follow-up on an as-needed basis as symptoms dictate moving forward. [id number] ALMA DELIA Crowe 2nd floor [address] [place] [id number] 04/08/2024 15:35:50 04/08/2024 16:04:49 History of reverse prosthetic total arthroplasty of left shoulder 1690625688 9844274 Z96.426 [id number] Jenifer Shirley PA-C [facility] [address] [place] [id number] 11/19/2024 12:39:38 12/07/2024 14:56:42 Osteoarthritis of right glenohumeral joint 2357532927 963284 M19.011 PLAN:Delta haq of the diagnosis discussed with the patient today. They are having an acute exacerbati on of symptoms including pain, swelling and difficulty participat ing in ADL's. Both surgical and nonsurgica l options were reviewed. Conservati ve treatment options including activity modificati on, exercise program, physical therapy, NSAIDs, and injections were discussed. At this point patient elects to move forward with a repeat cortisone injection. Patient tolerated the procedure well. Post injection precaution s reviewed. They will continue with conservati ve modalities including rest and icing. Follow-up with us as symptoms dictate for discussion of continued conservati ve management options versus operative interventi on. See procedure notes for injection details. Health Concerns Section Related Observation LastModified by Organization Detai ls LastModified Time None Recorded Concern Status LastModified by Organization Details LastModified Time None Recorded Advance Directives Directive None Recorded Payers Insurance Date Sequence Insurance Name Policy Number Policy Harding Covered Member ID Harding Member ID Guarantor Name 05/11/2025 1 [facility] MEDICARE ADVANTAGE PLAN (MEDICARE REPLACEMENT HMO) [id number] Summer Resendiz [id number] Summer Resendiz 05/11/2025 1 [facility]: MEDICARE PPO BLUE (MEDICARE REPLACEMENT PPO) [id number] Summer Resendiz [id number] Summer Resendiz Notes Date Note Type Note Provider Name and Address Organization Details Recorded Time 12/01/2023 text/html Surgery: Left reverse total shoulder arthroplasty, 08/26/2023 Interval History: Summer returns today in follow-up now 3 months out from surgery as above. Doing well. Continues in PT, making good progress with range of motion. Denies pain. No issues with incision. No numbness or tingling in the arm or hand. Past family, medical, social history and review of systems have been reviewed and updated on the medical history sheet saved to the patient's chart. A 12-point review of systems is negative x12 except as noted above and/or on the medical history sheet. Examination: Pleasant 68-year-old woman in no acute distress. On exam of the left upper extremity, incision is healing nicely. Able to maintain the shoulder abducted against gravity without difficulty. Active forward elevation 160, passive 165. Passive ER 65 with negative ER lag. IR to L4. Sensation intact in an axillary distribution. Fires EPL, FPL and intrinsics. Hand is warm and well perfused. Imaginv of the left shoulder ordered and obtained at [facility] today were reviewed during the visit. These demonstrate a reduced glenohumeral joint. Central post and all peripheral screws have excellent purchase within the glenoid vault. Good apposition between baseplate and [place] glenoid. No evidence for scapular fracture, glenoid notching, or component loosening. Impression: 68-year-old [id number] retired woman, now 3 months out from surgery as above. Doing well. Plan: Will have the patient finish out the prescribed PT and transition to HEP. Encouraged to continue with stretching exercises, as motion will continue to improve for up to a year after surgery if we keep working at it. Now at 3 months may start in with some light strengthening, though would keep weight 5-10 lbs until after 6-month recheck. May also start to weightbear through the arm as needed and work on motion behind the back in a more concerted manner. Will plan for a return visit in another 3 months for next recheck with new xrays, and then again for an annual visit, yearly thereafter. Encouraged to call sooner, however, with any new issues or concerns that may arise. The patient has a dental cleaning upcoming. Discussed use of prophylactic oral antibiotics lifelong to reduce risk of prosthetic joint infection associated with dental cleanings and procedures. Prescription for amoxicillin 2000 mg once (with multiple refills) sent to the patient's pharmacy. Risks and benefits of medication discussed. [facility] speech recognition exhibit preparator software was used to create portions of this document. An attempt at proofreading has been made to minimize errors. Please call for corrections. Traci Kaufman MD [address], [place], [address], [facility] 12/01/2023 11:05:25 12/04/2023 text/html Patient presents today reporting 0/10 pain today, saw Dr Kaufman, everything is progressing normally, okay to progress to HEP. Lift 5-10 # max. Gonzalez Cori, PT [address], [place], [address], [facility] 12/04/2023 09:56:28 01/06/2024 text/html ROS as noted in the HPI I am seeing the patient under the general supervision of Dr. Gregorio who was available but who did not see the patient. Patient is a 68 year old female who presents today with chief complaint of right shoulder pain. Reports ongoing right shoulder pain for a number of years but her left shoulder was worse so that took the focus first. She recently had surgery in august for the left shoulder which is doing very well. Reports the right shoulder hurts worst at night. Wakes her from sleep. She also notes a decrease in ROM compared to her left shoulder now. DIAGNOSTIC IMAGIN view right shoulder radiographs were ordered, obtained and independently reviewed by myself during today's visit at [facility] and demonstrate moderate glenohumeral joint space narrowing noted on AP and axillary views. Progressive moderate-sized inferior humeral osteophyte noted on AP Grashey view. No fracture or dislocation. No appreciable superior humeral head migration Jenifer Shirlye PA-C [address], [place], [address], [facility] 01/06/2024 10:04:17 04/08/2024 text/html I am seeing the patient today under the supervision of Dr. Payne who was available but who did not see the patient. HPI: The patient returns for follow-up of a left reverse total shoulder arthroplasty. The patient is 6 months postop. The patient finished with formal physical therapy. The patient's pain is well-controlled. Past family, medical, social history and review of systems has been reviewed, updated and is located in the patient s chart. Examination: The patient is well appearing and in no apparent distress. Alert and oriented x3. Gait is symmetric. No significant swelling, warmth, erythema about the left shoulder. The incision is well-healed. Active range of motion of the left shoulder is forward elevation to 160, external rotation to 70, and internal rotation to L1. Peripheral, vascular, lymphatic examination, skin, neurological, coordination, reflexes, sensation are within normal limits. X-rays ordered, obtained and reviewed at [facility] 3 views of the left reverse total shoulder arthroplasty demonstrate good implant interfaces and good alignment. As compared to previous films they are unchanged. Impression: Status post left reverse total shoulder arthroplasty Plan: I reviewed postop protocols with the patient. The patient can increase activities per tolerance. The patient will continue with a home exercise program which we discussed at length. The patient understands a full recovery from this operation is approximately 12 months after surgery. All questions answered to their satisfaction today. They will follow up on an annual basis. Luis Manuel Arreaga PA-C [address], [place], [address], [facility] 04/08/2024 15:57:41 11/19/2024 text/html ROS as noted in the HPI I am seeing the patient under the general supervision of Dr. Gregorio who was available but who did not see the patient. History of Present Illness:Patient comes to the office with known history of glenohumeral arthritis of the Right shoulder(s). The patient has done well with conservative management for their shoulder pain with good clinical response to cortisone injections in the past. Reports recently increasing discomfort over the past several weeks with no new injury or trauma. Pain is generalized about the shoulder and discomfort is worst at night. Last injections were 01/06/24 Jenifer Shirley PA-C [address], [place], [address], [facility] 11/19/2024 13:09:42 OBGyn Episode No OBEpisode recorded.
--- OUTSIDE RECORDS SUMMARY | 2025-06-10 07:40 | XMS_ITS | Patient Health Record ---
Author Organization [facility] Address [address] [place] [address] Care Team Providers Care Client Success Manager Name Role Phone Rashaun Kennedy Primary Care Provider Wilian Sexton [phone] Reason For Referral No Information Medications Medication SIG (Take, Route, Frequency, Duration) Notes Start Date End Date Status Simvastatin 40 MG Tablet 1 tablet in the evening Orally Once a day Active Multivitamin Adult A ctive Calcium Active Baby Aspirin Active Social History Tobacco Use: Social History Observation Description Date Details (start date - stop date) Never Smoker NA - NA Social History Drugs/Alcohol: Social Info Question Answer Notes Alcohol Screen Did you have a drink containing alcohol in the past year? Yes How often did you have a drink containing alcohol in the past year? 2 to 4 times a month (2 points) How many drinks did you have on a typical day when you were drinking in the past year? 3 or 4 drinks (1 point) How often did you have 6 or more drinks on one occasion in the past year? Never (0 point) Points 3 Interpretation Positive Tobacco Use: Social Info Question Answer Notes Tobacco Use/Smoking Patient is a nonsmoker Additional Details Category Social Info Options Details Miscellaneous: Marital status: Occupation: [employer] Notes: Nonsmoker; no sig alcohol Problems Problem Type SNOMED Code ICD Code Onset Dates Problem Status W/U Status Risk Notes Problem Screening for malignant neoplasm of colon (511115405) Encounter for screening for malignant neoplasm of colon (Z12.11) Active confirmed Problem Preprocedural examination (668669461038048) Preprocedural examination (Z01.818) Active confirmed Plan Of Treatment Future Test Test Name Order Date COLONOSCOPY 12/25/2017 Insurance Providers Payer Name Payer Address Payer Phone Subscriber Number Group Number Insured Name Patient Relationship to Insured Coverage Start Date Coverage End Date [employer] [address] [place]G [id number] KATI WHEELER Self - patient is the insured Medical (General) History Medical History History ICD Code Denies RI,DM,CVA,Lung disease,renal dise ase Thyroid nodules--sees Dr. Resendiz Neg. screening colonoscopy i n 03/2008 except for some mild sigmoid diverticulosis and small internal hemorrhoids Hyperlipidemia Surgical History Surgery Date(Month/Year) Cholecystectomy
--- OUTSIDE RECORDS SUMMARY | 2025-06-10 07:40 | XMS_ITS | Continuity of Care Document ---
Author Organization [place] - [facility], [facility] Address [address] [place] [address] [place] [address] Assessment No assessment recorded. Plan of Treatment Reminders Order Date Submit Date Provider Last Modified By Organization Details Last Modified Time Details Appointments ANNUAL EXAM 2025 09:30A M SHABNAM MABRY Not available Not available Not available Lab CMP, serum or plasma 2024 025 [facility], [address] [place] [address], [id number], 06/01/2025 09:23:24 CBC w/ auto diff 2024 025 [facility], [address] [place] [address], [id number], 06/01/2025 09:23:24 lipid panel, blood 2024 025 [facility], [address] [place] [address], [id number], 06/01/2025 09:23:24 hemoglobi n A1c, QN, blood 2024 025 [facility] [place], [address] [place], [address], 06/01/2025 09:22:29 TSH + free T4, serum 2024 025 [facility], [address] [place] [address], [id number], 06/01/2025 09:23:24 Referral None recorded. Procedures None recorded. Surgeries None recorded. Imaging bone density 2024 025 [facility], [address] [place], [address], 06/01/2025 15:37:39 US, thyroid 2024 025 [email or web address] [facility], [address] [place], [address], 06/07/2025 13:37:54 Medication Orders amoxicill in 500 mg capsule 2024 025 [id number], [address] [place], [address], 06/01/2025 09:09:41 Patient TargetsNo targets recorded. Patient InstructionsNo instructions recorded. Reason for Referral None Reported. Problems Name Problem SNOMED Code Status Onset Date Resolution Date Notes Provider Name and Address Organization Details Recorded Time Hyperchol esterolem ia 96691997 Active 2017 [facility] 16:58:53 Hypothyro idism 37892575 Active 2017 Almaz Vega NP, S [address] [place] [address], [address], [facility] 8 12:12:03 Jean-Pierre thyroidit is 46612812 Active 2018 Almaz Vega NP, S [address] [place] [address], [address], [facility] 9 08:52:48 Bilateral shoulder joint pain 492629102306 26168 Active 2021 SHABNAM MABRY [address] [place] [address], [address], [facility] 2 09:25:40 Esophagea l dysphagia 90343293 Active 2022 SHABNAM MABRY [address] [place] [address], [address], [facility] 3 10:20:24 Thyroid nodule 630586503 Active 2022 SHABNAM MABRY [address] [place], [address], [facility] 5 09:15:57 Osteopeni a 451531004 Active 2024 SHABNAM MABRY [address] [place], [address], [facility] 5 13:29:53 Problem Notes None recorded. Procedures Surgical History Date Name Laterality Status Provider Name and Address Organization Details Recorded Time 5 Most Recent Mammogram completed [facility] 11/30/2018 08:24:20 8 Colonoscopy completed [facility] 11/30/2018 08:25:24 Imaging Results None recorded. Procedure Notes None recorded. Medical Equipment None Reported. Allergies No known drug allergies Medications Name Sig Start Date Stop Date Status Note LastModified by Organization Details LastModified Time amoxicillin 500 mg capsule TAKE 4 CAPS 1 HOUR PRIOR TO PROCEDURE 2024 active Not Available Not Available Not Avai lable cefuroxime axetil 250 mg tablet Take 1 tablet every 12 hours by oral route. 11/30 completed Not Available Not Available Not Available meloxicam 15 mg tablet as needed for shoulder 05/21 completed Not Available Not Available Not Available simvastatin 40 mg tablet TAKE ONE TABLET BY MOUTH EVERY DAY 2024 active Not Available Not Available Not Avai lable levothyroxi ne 75 mcg tablet Take 1 tablet every day by oral route for 90 days. 05/13 completed Not Available Not Available Not Available levothyroxi ne 88 mcg tablet TAKE ONE TABLET BY MOUTH EVERY DAY 2024 active Not Available Not Available Not Avai lable levothyroxi ne 50 mcg tablet 11/30 completed Not Available Not Available Not Available omeprazole 20 mg capsule,del ayed release TAKE ONE CAPSULE BY MOUTH EVERY DAY 2024 active Not Available Not Available Not Avai lable oxycodone 5 mg tablet 05/21 completed Not Available Not Available Not Available levothyroxi ne 11/30 completed Not Available Not Available Not Available multivitami n Once a day active Not Available Not Available No t Available Calcium 500 Take one tablet once at night active Not Available Not Available No t Available Vitals Date Recorded Body weight Oxygen saturation Heart rate Systolic And Diastolic Provider Name and Address Organization Details Last Updated DateTime 06/01/2025 12583.77 g 97 % 70 /min 127/74 mm[Hg] TRAVIS GALVIN [facility] 06/01/2025 09:04:06 Social History Question Answer Notes LastModified by Organizat ion Details LastModified Time Tobacco Smoking Status Never Smoker Not Available [facility] 05/23/2020 03:36:23 What Was The Date Of Your Most Recent Tobacco Screening? 06/01/2025 [email or web address] Information not available 06/01/2025 Sex: Unknown Functional Status Question Answer Note LastModified by Organization D etails LastModified Time Do you or have you ever used any other forms of tobacco or nicotine? No [email or web address] Information not available 08/11/2023 Mental Status None recorded. Family History Nothing Reported. Medical History No medical history recorded. Gynecological History Statement/Question Response Most Recent Mammogram 07/17/2015 Obstetrics History GPAL:G 0 P 0 0 0 0 Immunizations Vaccine Type Date Status Note Provider Nam e and Address Organization Details Recorded Time Influenza, split virus, quadrivalent, preservative 1 completed SHABNAM MABRY [address] [place] [address], [address], [facility] 05/08/2021 09:33:17 COVID-19, mRNA, LNP-S, PF, 100 mcg/0.5mL dose or 50 mcg/0.25mL dose 1 completed Radhika santamaria [facility] 05/13/2022 08:00:03 COVID-19, mRNA, LNP-S, PF, 100 mcg/0.5mL dose or 50 mcg/0.25mL dose 1 completed Radhika santamaria [facility] 05/13/2022 08:00:11 COVID-19, mRNA, LNP-S, PF, 100 mcg/0.5mL dose or 50 mcg/0.25mL dose 1 completed Radhika santamaria [facility] 05/13/2022 08:00:17 Influenza, split virus, quadrivalent, preservative 2 completed Radhika santamaria [facility] 05/13/2022 08:00:30 influenza, unspecified formulation 3 completed SHABNAM MABRY [address] [place], [address], [facility] 05/14/2023 10:24:06 zoster recombinant 3 completed SHABNAM MABRY [address] [place], [address], [facility] 05/14/2023 10:24:26 Pneumococcal Conjugate, unspecified formulation 3 completed SHABNAM MABRY [address] [place], [address], [facility] 05/14/2023 10:24:44 influenza, unspecified formulation 5 completed SHABNAM MABRY [address] [place], [address], [facility] 06/01/2025 09:18:46 Tdap 5 completed Almaz Vega NP, S [address] [place], [address], [facility] 11/30/2018 14:33:37 Past Encounters Encounter ID Performer Location Encounter Start Date Encounter Closed Date Diagnosis/Indication Diagnosis SNOMED-CT Code Diagnosis ICD10 Code Diagnosis IMO Codes Diagnosis Note [id number] Rashaun Kennedy [facility] [address] [facility],[place] [address] 06/01/2025 08:47:48 06/01/2025 15:37:38 Depression screening 498652836 Z13.31 SCREENING NEGATIVE Oral cavity finding 1163 53665 Z01.20 91553864 needs refill General ex amination of patient 914192150 Z00.00 590829 BP is excellent no concerns Family his tory of osteopenia 936917281 Z82.69 [id number] will order Thyroid nodule 975661094 E04.1 [id number] rechk, last check was 2 years ago Health Concerns Section Related Observation LastModified by Organization Detai ls LastModified Time None Recorded Concern Status LastModified by Organization Details LastModified Time None Recorded Payers Encounter Date Sequence Insurance Name Policy Number Policy Harding Covered Member ID Harding Member ID Guarantor Name 06/01/2025 1 [facility]: MEDICARE PPO BLUE (MEDICARE REPLACEMENT PPO) [id number] Summer Pizarro Mettey [id number] Praveen Mettey Notes Date Note Type Note Provider Name a nd Address Organization Details Recorded Time 5 text/html Annual WellnessReported by PatientSocial/Behavio ral HistoryFor diet and nutrition, patient reportshealthy diet,discussed vitamin and supplement use,discussed portion control,discussed maintaining calcium balance, anddiscussed diet improvement. For fracture risk, patient reportsno history of fractures,no recent explained fracture,no sudden unexplained fractures, andno previous musculoskeletal injuries. For physical activity, patient reportsexercises on a regular basis,recent increase in physical activity,good physical condition,discussed weightbearing activities, anddiscussed exercise habits. For additional lifestyle factors, patient reportsno tobacco useanddrinks alcohol (mild-moderate).Menta l Status:For depression risk, patient reportsnever feels sad, empty, or tearful,no loss of interest in activities,no significant changes in weight,no sleep disturbances or insomnia,no agitation,no loss of energy,no feelings of worthlessness or guilt,no thoughts of suicide,no history of depression, andno history of mood disorders.Functional AbilityFor hearing, patient reportsno loss of hearing. For vision, patient reportsno vision problems(goes to her retinal specialist every year).ROS as noted in the HPI SHABNAM MABRY [address] [facility], [place], [address], [facility] 06/01/2025 09:26:08 OBGyn Episode No OBEpisode recorded.
--- OUTSIDE RECORDS SUMMARY | 2025-06-10 07:41 | XMS_ITS | Data Portability ---
Author Organization [facility], Telehealth Patient Home Address [address] [place] [address] Assessment Encounter Date Assessment Date Assessment LastModified by Organization Details LastModified Time 05/14/2023 05/14/2023 has consult for surgery for shoulder due to arthritis [email or web address] Not available 05/14/2023 10:23:40 Plan of Treatment Reminders Order Date Submit Date Provider Last Modified By Organization Details Last Modified Time Details Appointments ANNUAL EXAM 2025 09:30A M SHABNAM MABRY Not available Not available Not available Lab CMP, serum or plasma 2024 025 [facility], [address] [place] [address], [id number], 06/01/2025 09:23:24 CBC w/ auto diff 2024 025 [facility], [address] [place] [address], [id number], 06/01/2025 09:23:24 lipid panel, blood 2024 025 [facility], [address] [place] [address], [address], 06/01/2025 09:23:24 hemoglobi n A1c, QN, blood 2024 025 [place], [address] [place], [address], 06/01/2025 09:22:29 TSH + free T4, serum 2024 025 [facility], [address] [place] [address], [address], 06/01/2025 09:23:24 CMP, serum or plasma 2023 024 [facility], [address] [place] [address], [address], 05/21/2024 09:08:30 CBC w/ auto diff 2023 024 [facility], [address] [place] [address], [address], 05/21/2024 09:08:29 lipid panel, blood 2023 024 [facility], [address] [place] [address], [address], 05/21/2024 09:08:29 vitamin D, 25-hydrox y, total, serum 2023 024 [facility], [address] [place] [address], [address], 05/21/2024 09:08:29 hemoglobi n A1c, QN, blood 2023 024 [facility], [address] [place] [address], [address], 05/21/2024 09:08:29 TSH + free T4, serum 2023 024 [facility], [address] [place] [address], [address], 05/21/2024 09:08:29 CMP, serum or plasma 2022 023 [facility], [address] [place] [address], [address], 05/14/2023 10:24:41 CBC w/ auto diff 2022 023 [facility], [address] [place] [address], [address], 05/14/2023 10:24:41 lipid panel, blood 2022 023 [facility], [address] [place] [address], [address], 05/14/2023 10:24:41 TSH + free T4, serum 2021 022 [facility], [address] [place] [address], [address], 05/13/2022 09:24:59 CMP, serum or plasma 2021 022 [facility], [address] [place] [address], [address], 05/13/2022 09:31:15 CBC w/ auto diff 2021 022 [facility], [address] [place] [address], [address], 05/13/2022 09:31:15 lipid panel, blood 2021 022 [facility], [address] [place] [address], [address], 05/13/2022 09:31:15 Referral None recorded. Procedures None recorded. Surgeries None recorded. Imaging bone density 2024 025 [email or web address] [facility], [address] [place] [address], [place], [address], 06/01/2025 15:37:39 US, thyroid 2024 025 [email or web address] 10 [facility], [address] [place], [address], 06/07/2025 13:37:54 US, thyroid 2023 024 [facility], [address] [facility], [place], [place], [address], 05/24/2024 08:26:35 US, thyroid 2022 023 [facility], [address] [place], [address], 06/02/2023 08:36:02 barium swallow study 2022 023 [facility], [address] [facility], [place], [address], 05/28/2023 08:10:12 Medication Orders amoxicill in 500 mg capsule 2024 025 [facility], [address] [place], [address], 06/01/2025 09:09:41 levothyro xine 88 mcg tablet 2023 024 [facility], [address] [place], [address], 05/21/2024 09:03:19 omeprazol e 20 mg capsule,d elayed release 2022 023 [facility], [address] [place], [address], 05/14/2023 10:26:04 levothyro xine 88 mcg tablet 2022 023 [facility], [address] [place], [address], 05/14/2023 10:21:44 Patient TargetsNo targets recorded. Patient InstructionsNo instructions recorded. Reason for Referral None Reported. Results Created Date Observation Date Name Description Value Unit Range Abnormal Flag Note LastModifiedBy Organization Detail LastModifiedTime 07/02/20 22 07/01/2022 MAMMO , scree ashley, digit al, bilat eral No observ ation record ed. [email or web address] [address] [place], [address], 07/03/2022 07:47:19 08/18/19 24 07/31/2023 MAMMO , scree ashley, digit al, bilat eral No observ ation record ed. [email or web address] [email or web address] [address] [place], [address], 08/18/2023 10:44:42 06/09/20 24 06/09/2024 US, thyro id No observ ation record ed. [facility] [address] [facility], [place], [address], 06/09/2024 14:17:31 08/13/19 25 08/03/2024 MAMMO , scree ashley, digit al, bilat eral No observ ation record ed. [email or web address] [address] [place], [address], 08/14/2024 10:34:50 Result Notes None recorded. Problems Name Problem SNOMED Code Status Onset Date Resolution Date Notes Provider Name and Address Organization Details Recorded Time Hyperchol esterolem ia 48530233 [facility] 16:58:53 Hypothyro idism 71628234 Active 2017 Almaz Vega NP, [address] [place], [address], [place] [facility] 8 12:12:03 Jean-Pierre thyroidit is 66347593 Active 2018 Almaz Vega NP, [address] [place], [address], [place] [facility] 9 08:52:48 Bilateral shoulder joint pain 278095467386 55902 Active 2021 SHABNAM MABRY [address] [place] [address], [address], [facility] 2 09:25:40 Esophagea l dysphagia 34424101 Active 2022 SHABNAM MABRY [address] [place], [address], [facility] 3 10:20:24 Thyroid nodule 817745626 Active 2022 SHABNAM MABRY [address] [place], [address], [facility] 5 09:15:57 Osteopeni a 969285399 Active 2024 SHABNAM MABRY [address] [place], [address], [facility] 5 13:29:53 Problem Notes None recorded. Procedures Surgical History Date Name Laterality Status Provider Name and Address Organization Details Recorded Time 5 Most Recent Mammogram completed [facility] 11/30/2018 08:24:20 8 Colonoscopy completed [facility] 11/30/2018 08:25:24 Imaging Results None recorded. Procedure [...] No t Available Vitals Date Recorded Body height Body mass index (BMI) Body weight Heart rate Oxygen saturation Systolic And Diastolic Provider Name and Address Organization Details Last Updated DateTime 4 177.17 cm 29.8 kg/m2 47732.0 3 g 77 /min 97 % 130/76 mm[Hg] SHABNAM MABRY [address] [place], [address], [facility] 4 10:07:11 Date Recorded Body height Body mass index (BMI) Body weight Heart rate Oxygen saturation Systolic And Diastolic Provider Name and Address Organization Details Last Updated DateTime 2 177.17 cm 30.7 kg/m2 31315.6 6 g 72 /min 98 % 120/78 mm[Hg] Radhika Gutierrez [facility] 2 09:09:26 Date Recorded Body height Body mass index (BMI) Body weight Heart rate Oxygen saturation Systolic And Diastolic Provider Name and Address Organization Details Last Updated DateTime 3 177.17 cm 30.6 kg/m2 44191.1 5 g 68 /min 95 % 118/72 mm[Hg] Gale Hendricks [facility] 3 09:55:56 Date Recorded Body height Body mass index (BMI) Body weight Heart rate Oxygen saturation Systolic And Diastolic Provider Name and Address Organization Details Last Updated DateTime 4 177.17 cm 31.5 kg/m2 47749.7 8 g 72 /min 97 % 128/78 mm[Hg] Yesi Duran [facility] 4 08:56:14 Date Recorded Body weight Oxygen saturation Heart rate Systolic And Diastolic Provider Name and Address Organization Details Last Updated DateTime 06/01/2025 86658.77 g 97 % 70 /min 127/74 mm[Hg] TRAVIS GALVIN [facility] 06/01/2025 09:04:06 Social History Question [...] virus, quadrivalent, preservative 1 completed SHABNAM MABRY [address] [place] [address], [address], [facility] 05/08/2021 09:33:17 COVID-19, mRNA, LNP-S, PF, 100 mcg/0.5mL dose or 50 mcg/0.25mL dose 1 completed Radhika santamaria [facility] 05/13/2022 08:00:03 COVID-19, mRNA, LNP-S, PF, 100 mcg/0.5mL dose or 50 mcg/0.25mL dose 1 completed Radhika santamaria [facility] 05/13/2022 08:00:11 COVID-19, mRNA, LNP-S, PF, 100 mcg/0.5mL dose or 50 mcg/0.25mL dose 1 completed Radhika santamaria [facility] 05/13/2022 08:00:17 Influenza, split virus, quadrivalent, preservative 2 completed Radhika santamaria [facility] 05/13/2022 08:00:30 influenza, unspecified formulation 3 completed SHABNAM MABRY [address] [place], [address], [facility] 05/14/2023 10:24:06 zoster recombinant 3 completed SHABNAM MABRY [address] [place], [address], [facility] 05/14/2023 10:24:26 Pneumococcal Conjugate, unspecified formulation 3 completed SHABNAM MABRY [address] [place], [address], [facility] 05/14/2023 10:24:44 influenza, unspecified formulation 5 completed SHABNAM MABRY [address] [place], [address], [facility] 06/01/2025 09:18:46 Tdap 5 completed Almaz Vega NP, S [address] [place], [address], [facility] 11/30/2018 14:33:37 Past Encounters Encounter ID Performer Location Encounter Start Date Encounter Closed Date Diagnosis/Indication Diagnosis SNOMED-CT Code Diagnosis ICD10 Code Diagnosis IMO Codes Diagnosis Note [id number] Rashaun Kennedy [address],[place] [address] 10/31/2017 14:40:53 10/31/2017 16:45:09 [facility] [id number] E78.00 stable, labs completed 07/2017 Multinodular goiter 2375 26774 [address]04[address] Resendiz, endocrinol ogist 11/28/17. Pt will change, she will be going to [place] that day for son's graduation . Phone # provided Bursitis of shoulder 239 700478 M62.52 continue exercises without movements above head [id number] Rashaun Kennedy [facility] [address] [facility],[place] [address] 05/15/2018 11:53:21 05/15/2018 16:42:29 Cough 29922843 R05 Acute bact erial sinusitis 18115968 J01.90 Hypercholesterolemia 136 77816 E78.00 Hypothyroidism 98863980 E03.9 [id number] Rashaun Kennedy [facility] [address] [facility],[place] [place] [address] 11/30/2018 14:11:45 11/30/2018 15:28:34 Adult health examination 800948405 Z00.00 Hypothyroidism 56579846 E03.9 stable Hypercholesterolemia 136 48190 E78.00 Screening procedure 2012 5006 Z13.9 Active or passive immunization 145357422 Z23 pt to check local [employer] that have shingrix in stock and will obtain [id number] Rashaun Kennedy [facility] [address] [facility],[place] [facility] [place] [address] 01/04/2020 13:26:39 01/04/2020 13:54:29 Adult health examination 178633494 Z00.00 no concerns [id number] Rashaun Kennedy [facility] [address] [facility], [address] [facility] [place] [address] 05/08/2021 09:27:25 05/08/2021 13:49:20 Active or passive immunization 470149253 Z23 advised Adult heal th examination 693476353 Z00.00 no concerns Gastroesop hageal reflux disease 868659119 K21.9 will trial omeprazole Bilateral shoulder joint pain 4392276448 2939597 M25.512 waited for number in file to change before adding referral [id number] Rashaun Kennedy [facility] [address] [facility],[place] [facility] [place] [address] 05/13/2022 09:01:44 05/13/2022 12:12:29 Active or passive immunization 919848847 Z23 advised Adult heal th examination 398152839 Z00.00 no concerns Jean-Pierre thyroiditis 21 273071 E06.3 will f/u with routine screenings (every year) Bilateral shoulder joint pain 6692195479 1708651 M25.512 seeing orthogetti ng injections complement ing MRIlast seen in ortho [id number] Rashaun Kennedy [facility] [address] [facility],[place] [employer] [place] [place] [address] 05/14/2023 09:48:14 05/14/2023 13:48:03 Adult health examination 224520327 Z00.00 BP is excellent no concerns Esophageal dysphagia 408 22320 R13.19 hold on US thyroid, not due until next year Hypothyroidism 10075859 E00.0 needs refill Gastroesop hageal reflux disease 890513260 K21.9 will trial omeprazole Thyroid nodule 073906477 E04.1 rechk [id number] Rashaun Kennedy [facility] [address] [facility],[place] [employer] [place] [place] [address] 08/11/2023 09:56:35 08/11/2023 11:57:43 Pre-surgery evaluation 641824411 Z01.818 The patient was seen in the office today for pre-op evaluation . All medical conditions on patient's problem list were addressed and are currently stable, no interventi on needed at this time. Based on history and physical performed, the patient is cleared for surgery. [id number] Rashaun Kennedy [facility] [address] [facility],[place] [address] 05/21/2024 08:48:41 05/21/2024 09:12:59 Active or passive immunization 809497718 Z23 advised Adult heal th examination 047595809 Z00.00 BP is excellent no concerns Depression screening 171 002066 Z13.31 SCREENING NEGATIVE Hypothyroidism 17469909 E00.0 needs refill Thyroid nodule 872091266 E04.1 rechk, last check was 2 years ago [id number] Rashaun Kennedy [facility] [address] [facility],[place] [employer] [facility] [address] 06/01/2025 08:47:48 06/01/2025 15:37:38 Depression screening 225758060 Z13.31 SCREENING NEGATIVE Oral cavity finding 1163 79234 Z01.20 25720068 needs refill General ex amination of patient 517677432 Z00.00 055317 BP is excellent no concerns Family his tory of osteopenia 020586508 Z82.69 [id number] will order Thyroid nodule 449532707 E04.1 99859 rechk, last check was 2 years ago Health Concerns Section Related Observation LastModified by Organization Detai ls LastModified Time None Recorded Concern Status LastModified by Organization Details LastModified Time None Recorded Advance Directives Directive None Recorded Payers Insurance Date Sequence Insurance Name Policy Number Policy Harding Covered Member ID Harding Member ID Guarantor Name 06/01/2025 1 [facility] [id number] Summer Mettey [id number] Praveen Mettey 05/08/2021 1 [employer] [id number] Praveen J Mettey [id number] Praveen Mettey 06/01/2025 1 [facility] [id number] Summer Mettey [id number] Praveen Mettey 06/01/2025 1 [facility]: MEDICARE PPO BLUE (MEDICARE REPLACEMENT PPO) [id number] Summer Pizarro Mettey [id number] Praveen Mettey Notes Date Note Type Note Provider Name a nd Address Organization Details Recorded Time 2 text/html Annual WellnessReported by PatientSocial/Behavio ral HistoryFor [...] For additional lifestyle factors, patient reportsno tobacco use,no alcohol intake, andstopped drinking alcohol.Mental Status:For depression risk, patient reportsnever feels sad, empty, or tearful,no loss of interest in activities,no significant changes in weight,no sleep disturbances or insomnia,no agitation,no loss of energy,no feelings of worthlessness or guilt,no thoughts of suicide,no history of depression, andno history of mood disorders.Functional AbilityFor hearing, patient reportsno loss of hearing. For vision, patient reportsno vision problems(has to see an docket specialist to monitor her vision change). CHARITY TRYBA, PA [address] [place] [address], [address], [facility] 05/13/2022 09:34:34 3 text/html Annual WellnessReported by PatientSocial/Behavio ral HistoryFor diet and nutrition, patient reportshealthy diet. For fracture risk, patient reportsno history of fractures,no recent explained fracture,no sudden unexplained fractures, andno previous musculoskeletal injuries. For physical activity, patient reportsexercises on a regular basis,recent increase in physical activity, andgood physical condition. For additional lifestyle factors, patient reportsno tobacco use,no alcohol intake, andstopped drinking alcohol.Mental Status:For depression risk, patient reportsnever feels sad, empty, or tearful,no loss of interest in activities,no significant changes in weight,no sleep disturbances or insomnia,no agitation,no loss of energy,no feelings of worthlessness or guilt,no thoughts of suicide,no history of depression, andno history of mood disorders.Functional AbilityFor hearing, patient reportsno loss of hearing. For vision, patient reportsno vision problems. BP is excellent SHABNAM MABRY [address] [place] [address], [address], [facility] 05/14/2023 10:29:34 4 text/html Pre-OpReported by PatientHPIFor severity, patient reportsmoderate. For risk factors, patient reportsno cognitive impairment,no functional impairment,no malnutrition,no frailty,able to climb a flight of stairs (exercise capacity>4 mets),no obstructive sleep apnea,non-smoker,no alcohol misuse,no illicit drug use,no chronic cardiopulmonary condition, andnot obese. For anesthesia hx, patient reportsno hx of anesthesia complications,no allergy to anesthetic agents, andno family history of anesthesia complications. For functional ability, patient reportsable to walk up stairs,able to perform heavy work around the house,no difficulty walking up hills, andable to walk 4 mph. For post-op support, patient reportsadequate assistance at home ( and kids). For surgery to be performed, (left shoulder replacement with dr. fajardo [facility] on 08/26/23). For location, (left shoulder). SHABNAM MABRY [address] [place], [address], [facility] 08/11/2023 10:18:03 4 text/html Annual WellnessReported by PatientSocial/Behavio ral HistoryFor diet and nutrition, patient reportshealthy diet,discussed vitamin and supplement use,discussed portion control,discussed maintaining calcium balance, anddiscussed diet improvement. For fracture risk, patient reportsno history of fractures,no recent explained fracture,no sudden unexplained fractures, andno previous musculoskeletal injuries. For physical activity, patient reportsexercises on a regular basis,recent increase in physical activity, andgood physical condition. For additional lifestyle factors, patient reportsno tobacco [...] of hearing. For vision, patient reportsno vision problems.ROS as noted in the HPI recovered from her shoulder replacement Rdoing well, PT went great, has full range of motion no falls, no breaks, no MVA seeing podiatry for her right foot pain due for bw needs repeat US done SHABNAM MABRY [address] [place], [address], [facility] 05/21/2024 09:12:15 5 text/html Annual WellnessReported by PatientSocial/Behavio ral [...] as noted in the HPI SHABNAM MABRY [address] [place] [address], [address], [facility] 06/01/2025 09:26:08 OBGyn Episode No OBEpisode recorded.
[2025-06-10 07:47] LABS: MANUAL DIFF FLAG NO
[2025-06-10 08:33] LABS: Hematocrit 41.9 % (37.0-47.0); Hemoglobin 13.4 g/dl (12.0-16.0); Imm Gran Abs Auto 0.01 X10*3/uL (0.00-0.03); Imm Gran Pct Auto 0.2 % (0.0-0.4); Lymphocytes Absolute Auto 1.7 X10*3/uL (1.2-4.9); Mean Corpuscular HGB Conc 32.0 g/dl (31.0-35.0); Mean Corpuscular Hemoglobin 29.5 pg (27.0-33.0); Mean Corpuscular Volume 92.1 fL (80.0-98.0); NRBC Abs Auto 0.000 X10*3/uL (0.0-0.012); NRBC Pct Auto 0.0 /100WBC (0.0-0.2); Platelet Count 249 X10*3/uL (160-400); Red Blood Count 4.55 X10*6/uL (4.20-5.50); White Blood Count 5.6 X10*3/uL (4.8-10.8)
[2025-06-10 08:47] LABS: Alanine Aminotransferase 33 U/L (0-31); Albumin Level 4.5 g/dL (3.5-5.0); Alkaline Phosphatase 66 U/L (39-117); Anion Gap 12 (12-20); Aspartate Amino Transferase 28 U/L (5-31); Blood Urea Nitrogen 16 mg/dL (9-16); Calcium 9.5 mg/dL (8.4-10.2); Carbon Dioxide 30 mmol/L (22-29); Chloride 105 mmol/L (96-108); Cholesterol 176 mg/dL (<200); Estimated Glomerular Filt Rate > 60; HDL Cholesterol 60 mg/dL (>40); Potassium 4.4 mmol/L (3.3-5.1); Sodium 143 mmol/L (135-145); Total Protein 7.3 g/dL (6.5-8.0); Triglycerides 96 mg/dL (<150)
[2025-06-10 09:03] LABS: Free T4 (Free Thyroxine) 0.86 ng/dL (0.71-1.85); Thyroid Stimulating Hormone 4.72 uIU/mL (0.32-4.0)
== END 2025-06-10 07:38 | disposition home or self-care (01) ==
LOC: HO.LAB 07:37
PROVIDERS: PCP Internal Medicine; Visit Provider Physician Assistant
DX: Z00.00 Encounter for general adult medical examination without abnormal findings (principal); Z13.6 Encounter for screening for cardiovascular disorders; Z13.29 Encounter for screening for other suspected endocrine disorder
CPT/HCPCS: 36415; 80053; 80061; 84439; 84443; 85025

== ENCOUNTER 2025-06-27 08:26 | Outpatient (REF) | payer MEDICARE, SELFPAY ==
[2025-06-27 10:24] LABS: Free T4 (Free Thyroxine) 0.99 ng/dL (0.71-1.85); Thyroid Stimulating Hormone 4.10 uIU/mL (0.32-4.0)
== END 2025-06-27 08:27 | disposition home or self-care (01) ==
LOC: HO.LAB 08:26
PROVIDERS: PCP Internal Medicine; Visit Provider Physician Assistant
DX: E03.9 Hypothyroidism, unspecified (principal)
CPT/HCPCS: 36415; 84439; 84443